=== PATIENT | female | born 1975 | race Caucasian/White ===

== ENCOUNTER 2016-12-25 18:15 | Emergency (ER) | payer MEDICARE, MEDICAID ==
[~2016-12-25 18:15] MED LIST: DEPAKOTE500 M1 PO; MIDODRINE HCL5 M1 PO; NYSTATIN100000 UNI; PYRIDOSTIGMINE60 M2 PO; ROXICODONE5 M2 PO; TRANSDERM-SCOP1 EACH TD; ZANAFLEX2 M3 PO; ZOFRAN8 M1 PO; ZOVIRAX200 M1 PO; ZOVIRAX30 GM TOP
[2016-12-25 20:14] LABS: HCT-HEMATOCRIT 28.1 % (34.0-49.0); HGB-HEMOGLOBIN 9.5 gm/dl (12.0-15.5); MCH (MEAN CORPUSCULAR HGB) 30.4 pg (28.0-32.0); MCHC MEAN CORPUSCULAR HGB CONC 33.8 % (32.0-36.0); MCV (MEAN CELL VOLUME) 89.8 fl (82.0-96.0); MEAN PLATELET VOLUME 8.5 cmc (9.4-12.4); PLATELET COUNT 65 tho/cmm (150-450); RED BLOOD COUNT 3.13 mil/cmm (4.00-5.20); RED CELL DISTRIBUTION WIDTH 13.9 % (12.4-16.4)
[2016-12-25 20:31] LABS: URINE APPEARANCE HAZY; URINE BILIRUBIN NEGATIVE (NEG); URINE BLOOD SMALL (NEG); URINE COLOR YELLOW; URINE GLUCOSE (UA) NEGATIVE (NEG); URINE KETONE NEGATIVE (NEG); URINE LEUKOCYTE ESTERASE NEGATIVE (NEG); URINE NITRITE NEGATIVE (NEG); URINE PROTEIN SMALL (NEG)
[2016-12-25 20:33] LABS: ALB/GLOB RATIO 0.7 (0.8-2.0); ALBUMIN 3.6 g/dl (3.5-5.0); ALKALINE PHOSPHATASE 77 U/L (33-138); ALT/SGPT 24 U/L (12-78); ANION GAP 10 mmol/L (0-20); AST/SGOT 44 U/L (10-40); BILIRUBIN,TOTAL 1.4 mg/dl (0-1.5); BLOOD UREA NITROGEN 14 mg/dl (6-24); CALCIUM 9.3 mg/dl (8.5-10.5); CARBON DIOXIDE-VENOUS 32 mmol/L (22-32); CHLORIDE 98 mmol/l (96-110); CREATININE 1.15 mg/dl (0.50-1.10); GLUCOSE 122 mg/dL (70-110); POTASSIUM 3.5 mmol/L (3.7-5.1); SODIUM 136 mmol/L (135-145); eGFR VALUE FOR BLACK 69 mL/Min
[2016-12-25 20:34] LABS: NEUTROPHIL-AUTOMATED 0.1 tho/cmm (1.6-8.0); WHITE BLOOD COUNT 0.6 tho/cmm (4.0-10.0)
[2016-12-25 20:39] LABS: URINE BACTERIA 1+
[2016-12-25 20:41] LABS: URINE RBC 0-2 /[HPF] (0-5)
[2016-12-25 20:56] LABS: PROCALCITONIN 0.23 ng/ml (0.05-0.09)
[2016-12-25 21:16] LABS: BAND % 5 % (0-20); EOSINOPHIL % 3 % (0-7)
[2016-12-25] MEDS ORDERED: AUGMENTIN 875-1 EAC2 PO (21:54)
[2016-12-25] MEDS ORDERED: LEVAQUIN500 M1 PO (21:54)
[2017-06-11] MEDS ORDERED: COMPAZINE10 MG PO (13:43)
[2017-06-11] MEDS ORDERED: SYNTHROID100 MC1 PO (13:44)
[2017-06-11] MEDS ORDERED: MS CONTIN30 M1 PO (13:44)
== END 2016-12-25 22:23 ==
LOC: EDMED 18:15
PROVIDERS: Emergency Medicine
DX: D70.9 Neutropenia, unspecified (principal); R50.81 Fever presenting with conditions classified elsewhere; R11.0 Nausea; Z85.118 Personal history of other malignant neoplasm of bronchus and lung; Z79.899 Other long term (current) drug therapy; Z87.891 Personal history of nicotine dependence
CPT/HCPCS: J0692; J7030

== ENCOUNTER 2017-03-06 13:49 | Emergency (ER) | payer MEDICARE, MEDICAID ==
[~2017-03-06 13:49] MED LIST changes: +AUGMENTIN 875-1 EAC2 PO; +LEVAQUIN500 M1 PO
[2017-06-11] MEDS ORDERED: COMPAZINE10 MG PO (13:43)
[2017-06-11] MEDS ORDERED: SYNTHROID100 MC1 PO (13:44)
[2017-06-11] MEDS ORDERED: MS CONTIN30 M1 PO (13:44)
== END 2017-03-06 17:02 ==
LOC: EDMED 13:49
DX: R11.2 Nausea with vomiting, unspecified (principal); C34.90 Malignant neoplasm of unspecified part of unspecified bronchus or lung; Z87.19 Personal history of other diseases of the digestive system; Z86.718 Personal history of other venous thrombosis and embolism; Z90.89 Acquired absence of other organs; Z90.49 Acquired absence of other specified parts of digestive tract; Z79.899 Other long term (current) drug therapy; Z87.891 Personal history of nicotine dependence
CPT/HCPCS: J0780; J7030; Q9967